=== PATIENT | male | born 1990 | race Caucasian/White ===

== ENCOUNTER → 2017-01-02 | Outpatient (CLI) | payer BC ==
[2017-01-02 18:06] LABS: MANUAL MICROSCOPIC REQUIRED? NO; REVIEW REQ? NO; URINE APPEARANCE CLEAR (CLEAR); URINE BILIRUBIN NEG (NEG); URINE COLOR YELLOW; URINE EPITHELIAL CELL AUTO 0-5 /lpf (0-5); URINE NITRITE NEG (NEG); URINE SPECIFIC GRAVITY 1.012 (1.000-1.030); UROBILINOGEN NEG (NEG)
[2017-01-02 18:21] LABS: BLOOD UREA NITROGEN 17 mg/dl (7-18); CREATININE 1.28 mg/dl (0.60-1.40)
[2017-01-02 18:27] LABS: CREATININE RANDOM URINE 58.8 mg/dl
== END | disposition home or self-care (01) ==
LOC: C.LAB1850 17:06
PROVIDERS: ATTEND Internal Medicine
DX: Z52.4 Kidney donor (principal)